=== PATIENT | female | born 1995 | race Two or more races ===

== ENCOUNTER 2018-09-12 14:25 | Inpatient (IN) ==
[2018-09-12] MEDS ORDERED: TERBUTALINE 1 MG/1 ML VIAL SUBCUT ONE ×3 (16:10→19:30)
[2018-09-12] MEDS ORDERED: LACTATED RINGERS 1,000 ML IV SCH ×2 (16:10→21:00)
[2018-09-12] MEDS ORDERED: BUTORPHANOL 2 MG/ML VIAL IV PRN (16:42)
[2018-09-12] MEDS ORDERED: MEPERIDINE 50 MG/1 ML VIAL IV PRN (16:42)
[2018-09-12] MEDS ORDERED: ONDANSETRON 4 MG/2 ML VIAL IV PRN ×2 (16:42→20:39)
[2018-09-12 17:23] LABS: Basophils % 0.2 % (0.0-0.8); Eosinophils # 0.1 10*3/uL (0.0-0.87); Eosinophils % 0.6 % (0.00-10.9); Hematocrit 34.2 VOL% (35.7-47.0); Hemoglobin 11.3 GM/DL (12.0-16.0); Immature Granulocytes % 0.5 %; Immature Granulocytes Absolute 0.05 #; Lymphocytes # 2.7 10*3/uL (1.4-4.0); Lymphocytes % 28.1 % (21.3-54.2); Mean Corpuscular Volume 85.9 FL (87-102); Mean Platelet Volume 9.7 FL (9.6-12.0); Neutrophils % 64.6 % (38.7-73.9); Platelet Count 311 T/CUMM (130-400); Red Blood Count 3.98 MC/CUMM (3.8-5.5); Red Cell Distribution Width 13.5 % (9.3-17.3); White Blood Count 9.6 T/CUMM (4-12)
[2018-09-12] MEDS ORDERED: AMPICILLIN INJ 2,000 MG in SODIUM CHLORIDE 0.9% 100 ML IV ONE (17:27)
[2018-09-12] MEDS ORDERED: BETAMETH SODIUM PHOS/ACETATE 30 MG/5 ML VIAL IM SCH (18:00)
[2018-09-12 18:36] LABS: Barbiturates Screen,Urine Negative (Negative); Benzodiazepines Screen,Urine Negative (Negative); Cannabinoid Screen,Urine Negative (Negative); Opiate Screen,Urine Negative (Negative); Phencyclidine Screen,Urine Negative (Negative)
[2018-09-12] MEDS ORDERED: ceFAZolin 2,000 MG in PREMIX 1 EACH IV ONE (19:43)
[2018-09-12] MEDS ORDERED: CITRIC ACID/SODIUM CITRATE 30 ML UDCUP PO ONE (19:43)
[2018-09-12] MEDS ORDERED: FAMOTIDINE 20 MG/2 ML VIAL IV ONE (19:43)
[2018-09-12] MEDS ORDERED: OXYTOCIN/LR 20 UNIT/1,000 ML BAG IV ONE ×2 (20:08→20:39)
[2018-09-12] MEDS ORDERED: ACETAMINOPHEN 325 MG TABLET PO PRN (20:39)
[2018-09-12] MEDS ORDERED: RHO(D) IMMUNE GLOBULIN 300 MCG SYRINGE IM ONE (20:39)
[2018-09-12] MEDS ORDERED: BUPIVACAINE SPINAL 0.75% 2 ML AMP SPINAL ONE (20:48)
[2018-09-12] MEDS ORDERED: diphenhydrAMINE 50 MG/1 ML VIAL ONE (20:48)
[2018-09-12] MEDS ORDERED: fentaNYL 100 MCG/2 ML VIAL ONE (20:48)
[2018-09-12] MEDS ORDERED: MORPHINE 10 MG/10 ML VIAL ONE (20:48)
[2018-09-12] MEDS ORDERED: PROPOFOL 200 MG/20 ML VIAL IV ONE (20:50)
[2018-09-12] MEDS ORDERED: ROCURONIUM 100 MG/10 ML VIAL IV ONE (20:51)
[2018-09-12] MEDS ORDERED: SUCCINYLCHOLINE 200 MG/10 ML VIAL ONE (20:51)
[2018-09-12] MEDS ORDERED: AMPICILLIN INJ 1,000 MG in SODIUM CHLORIDE 0.9% 100 ML IV SCH (21:30)
[2018-09-13] MEDS: DOCUSATE SODIUM 100 MG CAPSULE PO SCH ×3 (00:41→21:12)
[2018-09-13] MEDS: ceFAZolin 1,000 MG in SYRINGE 1 EACH IV SCH ×2 (04:01→12:09)
[2018-09-13 05:03] LABS: Basophils % 0.1 % (0.0-0.8); Hematocrit 30.8 VOL% (35.7-47.0); Hemoglobin 9.9 GM/DL (12.0-16.0); Immature Granulocytes % 0.7 %; Immature Granulocytes Absolute 0.11 #; Lymphocytes # 0.9 10*3/uL (1.4-4.0); Lymphocytes % 6.1 % (21.3-54.2); Mean Corpuscular HGB Conc 32.1 GM/DL (32-36); Mean Corpuscular Volume 86.3 FL (87-102); Mean Platelet Volume 9.5 FL (9.6-12.0); Monocytes % 4.1 % (1.7-12.7); Platelet Count 299 T/CUMM (130-400); Red Blood Count 3.57 MC/CUMM (3.8-5.5); Red Cell Distribution Width 13.4 % (9.3-17.3)
[2018-09-13] MEDS: IBUPROFEN 800 MG TABLET PO PRN ×2 (06:33→21:09)
[2018-09-13] MEDS: MAGNESIUM HYDROXIDE SUSP 30 ML UDCUP PO PRN ×2 (09:12→21:12)
[2018-09-13] MEDS: MULTIVITAMIN (PRENATAL) TABLET PO SCH (09:12)
[2018-09-13 11:51] LABS: Basophils % 0.2 % (0.0-0.8); Hematocrit 30.6 VOL% (35.7-47.0); Hemoglobin 10.1 GM/DL (12.0-16.0); Immature Granulocytes % 0.9 %; Immature Granulocytes Absolute 0.15 #; Lymphocytes # 1.2 10*3/uL (1.4-4.0); Mean Corpuscular Volume 85.2 FL (87-102); Mean Platelet Volume 9.9 FL (9.6-12.0); Monocytes % 8.2 % (1.7-12.7); Neutrophils % 83.7 % (38.7-73.9); Platelet Count 305 T/CUMM (130-400); Red Blood Count 3.59 MC/CUMM (3.8-5.5); Red Cell Distribution Width 13.5 % (9.3-17.3)
[2018-09-13] MEDS: oxyCODONE/ACETAMINOPHEN 5-325 MG TABLET PO PRN (20:05)
[2018-09-13] MEDS: SIMETHICONE CHEW 80 MG TABLET PO PRN (21:13)
[2018-09-14] MEDS: oxyCODONE/ACETAMINOPHEN 5-325 MG TABLET PO PRN ×4 (00:12→19:53)
[2018-09-14] MEDS: IBUPROFEN 800 MG TABLET PO PRN ×3 (04:16→19:52)
[2018-09-14] MEDS: MULTIVITAMIN (PRENATAL) TABLET PO SCH (08:54)
[2018-09-14] MEDS: MAGNESIUM HYDROXIDE SUSP 30 ML UDCUP PO PRN (08:56)
[2018-09-14] MEDS: DOCUSATE SODIUM 100 MG CAPSULE PO SCH ×2 (08:56→19:52)
[2018-09-14] MEDS: SIMETHICONE CHEW 80 MG TABLET PO PRN (19:52)
[2018-09-15] MEDS: DOCUSATE SODIUM 100 MG CAPSULE PO SCH ×2 (01:14→09:34)
[2018-09-15] MEDS: IBUPROFEN 800 MG TABLET PO PRN ×2 (04:27→13:29)
[2018-09-15] MEDS: oxyCODONE/ACETAMINOPHEN 5-325 MG TABLET PO PRN (04:28)
[2018-09-15] MEDS: MULTIVITAMIN (PRENATAL) TABLET PO SCH (09:34)
[2018-09-15 11:42] VITALS: BP 115/63
[2018-09-15] MEDS ORDERED: DIPH/TET/ACEL PERT BOOSTER VACCINE 0.5 ML VIAL IM ONE (12:19)
[2018-09-15] MEDS ORDERED: MEASLES/MUMPS/RUBELLA VACCINE 0.5 ML VIAL SUBCUT ONE (12:20)
== END 2018-09-15 13:25 | disposition home or self-care (01) | DRG 540 ==
LOC: N.LDOUT 14:25 → N.LD 14:30 → N.OB 23:57
PROVIDERS: ADMIT Obstetrics & Gynecology; ATTEND Obstetrics & Gynecology
PROC: LDCSECT (ICD-10-PCS; 2018-09-12 19:45)